=== PATIENT | female | born 1980 | race Caucasian/White ===

== ENCOUNTER 2018-11-22 12:08 | Outpatient (CLI) | payer OTHER, SELFPAY ==
[2018-11-22 13:43] LABS: TSH (W/Ref FT4) 6.84 uIU/mL (0.358-3.74)
[2018-11-22 14:00] LABS: FREE T4 1.05 ng/dL (0.76-1.46)
== END 2018-11-22 12:28 ==
PROVIDERS: PCP Nurse Practitioner Family; Visit Provider Nurse Practitioner Family
DX: E03.9 Hypothyroidism, unspecified (principal)
CPT/HCPCS: 36415; 84439; 84443

== ENCOUNTER 2018-11-22 12:10 | Outpatient (REF) | payer OTHER, SELFPAY ==
--- NOTE | 2018-11-22 11:30 | PAPFT_PTH ---
PATIENT: Suzanne Jacobo LOC: [facility] U#:[id number] AGE/SX: 37/F ROOM: RE11/22/[address]: Sofy Leavitt APRN : 1980 BED: DIS: 11/22/2018 SPEC #: [id number] RECD: 11/22/18 12:56 STATUS: BOOM REHeather #: [id number] EBER: 11/22/18 11:[address]: Sofy Leavitt DEPT: [facility] Cytology RECD BY: Zulma Garcia Tissues: 1 - CX/ENDOCX FOR PAP SMEARS Procedures: PAP THIN PREP/UVM Screening HPV DNA PROBE Comments: [id number]
== END 2018-11-22 12:30 ==
LOC: LBN 12:10
PROVIDERS: PCP Nurse Practitioner Family; Visit Provider Nurse Practitioner Family
DX: Z12.4 Encounter for screening for malignant neoplasm of cervix (principal); Z11.51 Encounter for screening for human papillomavirus (HPV)
CPT/HCPCS: 88142; 87624

== ENCOUNTER 2018-11-23 02:16 | Outpatient (CLI) | payer OTHER, SELFPAY ==
--- NOTE | 2018-11-23 08:35 | DI.US_ITS ---
SYMPTOM/DIAGNOSIS: ? ENDOMETRIOSIS VS FIBROID VS OTHER PATHOLOGY, MENORRHAGIA, N92.0,EXCESSIVE AND FREQUENT MENSTRUATION PELVIC ULTRASOUND: Pelvic ultrasound was performed transabdominally and transvaginally. Please see the worksheet for measurements of the pelvic structures. Uterus is unremarkable in appearance with an 11 mm. homogeneous endometrial stripe. There may be a tiny quantity of free fluid in the pelvis. Ovarian follicular appearance is unremarkable except for a presumed corpus luteum on the right. CONCLUSION: Negative pelvic ultrasound.
== END 2018-11-23 02:36 ==
PROVIDERS: PCP Nurse Practitioner Family; Visit Provider Nurse Practitioner Family
DX: N92.0 Excessive and frequent menstruation with regular cycle (principal); N83.11 Corpus luteum cyst of right ovary
CPT/HCPCS: 76830; 76856

== ENCOUNTER 2018-12-07 10:38 | Outpatient (CLI) | payer OTHER, SELFPAY ==
[2018-12-07 12:53] LABS: TSH (W/Ref FT4) 2.56 uIU/mL (0.358-3.74)
== END 2018-12-07 10:58 ==
PROVIDERS: PCP Nurse Practitioner Family; Visit Provider Nurse Practitioner Family
DX: E03.9 Hypothyroidism, unspecified (principal)
CPT/HCPCS: 36415; 84443

== ENCOUNTER 2019-09-10 10:53 | Outpatient (CLI) | payer OTHER, SELFPAY ==
[2019-09-10 12:29] LABS: TSH (W/Ref FT4) 3.19 uIU/mL (0.36-3.74)
== END 2019-09-10 11:13 ==
PROVIDERS: PCP Nurse Practitioner Adult Health; Visit Provider Nurse Practitioner Adult Health
DX: E03.9 Hypothyroidism, unspecified (principal)
CPT/HCPCS: 36415; 84443

== ENCOUNTER 2020-05-20 04:00 | Outpatient (CLI) | payer OTHER, SELFPAY ==
[2020-05-20 15:09] LABS: Abs Immature Grans 0.03 10^3/uL (0.0-0.06); Absolute Basophil Count 0.05 10^3/uL (0.0-0.2); Absolute Eosinophil Count 0.04 10^3/uL (0.0-0.7); Absolute Lymphocyte Count 3.55 10^3/uL (1.2-3.4); Absolute Monocyte Count 0.47 10^3/uL (0.1-0.8); Basophils % 0.6; Eosinophils % 0.5; HCT 37.1 % (36.0-46.0); Immature Grans % 0.4; Lymphocytes % 43.1; MCH 30.1 pg (27.0-33.0); MCHC 32.3 % (32.0-36.0); MPV 10.2 fL (8.0-11.0); Monocytes % 5.7; Neutrophils % 49.7; Nucleated RBC 0 %; Platelet Count 228 10^3/uL (130-400); RBC 3.99 10^6/uL (3.93-5.22); RDW-SD 44.2 fL; WBC 8.24 10^3/uL (4.4-10.8)
[2020-05-20 16:19] LABS: ESR 8 mm/hr (0-20)
[2020-05-20 19:44] LABS: TSH (W/Ref FT4) 4.69 uIU/mL (0.36-3.74)
[2020-05-20 20:06] LABS: FREE T4 0.99 ng/dL (0.76-1.46)
[2020-05-21 10:35] LABS: Syphilis Serology (RPR) Negative (Negative)
[2020-05-21 11:09] LABS: Lyme Ab w Rflx to Lyme Confirm Negative (Negative)
[2020-05-22 15:23] LABS: ANA Interpretation Positive (Negative); ANA Titer Pattern 1:80 Speckled
[2020-05-22 18:19] LABS: Anaplasma phagocytophilum Negative (Negative); B. miyamotoi PCR Negative (Negative); Babesia divergens/MO-1 Negative (Negative); Babesia duncani Negative (Negative); Babesia microti Negative (Negative); Ehrlichia chaffeensis Negative (Negative); Ehrlichia ewingii/canis Negative (Negative); Ehrlichia muris eauclairensis Negative (Negative)
== END 2020-05-20 04:20 ==
PROVIDERS: PCP Nurse Practitioner Adult Health; Visit Provider Family Medicine
DX: M54.12 Radiculopathy, cervical region (principal)
CPT/HCPCS: 36415; 85652; 87798; 84439; 84443; 85025; 86038; 86140; 86592; 86618

== ENCOUNTER 2021-04-15 10:43 | Outpatient (REF) | payer OTHER, SELFPAY ==
--- NOTE | 2021-04-15 10:15 | SKI_PTH ---
PATIENT: Suzanne Jacobo LOC: [facility] U#:[id number] AGE/SX: 40/F ROOM: RE04/15/[address]: GAMA [place] : 1980 BED: DIS: 04/15/2021 SPEC #: [id number] RECD: 04/15/21 12:26 STATUS: BOOM [place] #: [id number] EBER: 04/15/21 10:[address]: Amber Sewell DEPT: Surgical Specimen RECD BY: Zulma Garcia ENTERED: 04/15/21 12:28 SP TYPE: FERNANDO SALES DR: Odette Santiago APRN Tissues: 1 - SKIN BIOPSY(SHAVE/PUNCH) 2 - SKIN BIOPSY(SHAVE/PUNCH) Procedures: SKIN LEVEL 4 Comments: [id number]
== END 2021-04-15 10:44 | disposition home or self-care (01) ==
LOC: LBN 10:43
PROVIDERS: PCP Nurse Practitioner Adult Health; Visit Provider Physical Therapy Assistant
DX: D04.8 Carcinoma in situ of skin of other sites (principal)
CPT/HCPCS: 88305

== ENCOUNTER 2021-05-03 10:32 | Outpatient (REF) | payer OTHER, SELFPAY ==
--- NOTE | 2021-05-03 09:00 | SKI_PTH ---
PATIENT: Suzanne Jacobo LOC: [facility] U#:[id number] AGE/SX: 40/F ROOM: RE05/03/[address]: GAMA [place] : 1980 BED: DIS: 05/03/2021 SPEC #: [id number] RECD: 05/03/21 12:59 STATUS: BOOM REHeather #: [id number] EBER: 05/03/21 09:[address]: Amber Sewell DEPT: Surgical Specimen RECD BY: Zulma Garcia ENTERED: 05/03/21 13:00 SP TYPE: FERNANDO SALES DR: Odette Santiago APRN Tissues: 1 - SKIN BIOPSY(SHAVE/PUNCH) 2 - SKIN BIOPSY(SHAVE/PUNCH) Procedures: GROSS AND MICRO LEVEL 4 Comments: [id number]
== END 2021-05-03 10:33 | disposition home or self-care (01) ==
LOC: LBN 10:32
PROVIDERS: PCP Nurse Practitioner Adult Health; Visit Provider Physical Therapy Assistant
DX: D07.1 Carcinoma in situ of vulva (principal); N90.89 Other specified noninflammatory disorders of vulva and perineum
CPT/HCPCS: 88305

== ENCOUNTER 2021-06-28 11:53 | Outpatient (REF) | payer OTHER, SELFPAY ==
--- NOTE | 2021-06-28 11:00 | PAPFT_PTH ---
PATIENT: Suzanne Jacobo LOC: [facility] U#:[id number] AGE/SX: 40/F ROOM: RE06/28/[address]: Katie Goodman DO : 1980 BED: DIS: 06/28/2021 SPEC #: [id number] RECD: 06/28/21 18:53 STATUS: BOOM REQ #: [id number] EBER: 06/28/21 11:[address]: Katie Goodman DEPT: [facility] Cytology RECD BY: Zulma Garcia ENTERED: 06/28/21 18:53 SP TYPE: PAPFT OT DR: Odette Santiago APRN Tissues: 1 - CX/ENDOCX FOR PAP SMEARS Procedures: PAP THIN PREP/UVM Screening HPV DNA PROBE Comments: [id number]
== END 2021-06-28 11:54 | disposition home or self-care (01) ==
LOC: LBN 11:53
PROVIDERS: PCP Nurse Practitioner Adult Health; Visit Provider Obstetrics & Gynecology
DX: Z12.4 Encounter for screening for malignant neoplasm of cervix (principal); Z85.44 Personal history of malignant neoplasm of other female genital organs; Z11.51 Encounter for screening for human papillomavirus (HPV)
CPT/HCPCS: 88142; 87624

== ENCOUNTER 2022-01-04 02:30 | Outpatient (CLI) | payer OTHER, SELFPAY ==
[2022-01-04 12:04] LABS: Source Nasal/Nares
[2022-01-04 14:10] LABS: COVID-19 PCR Negative (Negative)
== END 2022-01-04 02:31 | disposition home or self-care (01) ==
PROVIDERS: PCP Nurse Practitioner Adult Health; Visit Provider Student in an Organized Health Care Education/Training Program
DX: Z20.822 Contact with and (suspected) exposure to COVID-19 (principal); Z01.818 Encounter for other preprocedural examination
CPT/HCPCS: 87635

== ENCOUNTER 2022-01-06 09:49 | Day surgery (SDC) | payer OTHER, SELFPAY ==
--- NOTE | 2022-01-06 08:39 | W.ANESPRE ---
General Info Date of Service Date Performed: 01/06/22 Height: 5 ft 8.5 in Weight: 58.967 kg Body Mass Index (BMI): 19.5 Surgical Procedure: Operation Date: 01/06/22 10:55 Proposed Procedure Side Surgeon p Shoulder Manipulation Left John Monterroso MD Meds Allergies and Home Medications Allergies Allergy/AdvReac Type Severity Reaction Status Date / Time No Known Allergies Allergy Verified 01/06/22 10:04 Home Medication Medication Instructions Recorded multivitamin (Multi-Day) 1 ea PO DAILY 03/16/17 valacyclovir 1 gram tablet 2,000 mg PO BID PRN #4 tab-cap 08/16/21 ibuprofen 800 mg tablet 800 mg PO TID PRN 01/06/22 naproxen 250 mg tablet 250 - 500 mg PO BID PRN #40 tab 01/06/22 oxycodone 5 mg tablet 5 - 10 mg PO Q4H PRN #9 tab MDD 30 01/06/22 mg Current Visit Medications: Current Medications Generic Name Dose Route Start Last Admin Trade Name Freq PRN Reason Stop Dose Admin Ringer's Solution 1,000 mls @ 30 mls/hr 01/06/22 06:00 IV 02/04/22 23:59 INFUSION MAYNOR IV Miscellaneous Supplies 1 each 01/06/22 06:00 Iv Access IV 02/04/22 23:59 DIRECTED MAYNOR Naproxen 250 - 500 mg 01/06/22 07:11 Naproxen 500 Mg Tab PO BID PRN PRN Oxycodone HCl 5 - 10 mg 01/06/22 07:11 Oxycodone 5 Mg Tab PO Q4H PRN PRN Sodium Chloride 0 ml 01/06/22 06:00 Normal Saline Flush 10 Ml Syr IV 02/04/22 23:59 PRN PRN Sodium Chloride 0 ml 01/06/22 06:00 Normal Saline 10 Ml Vial IJ 02/04/22 23:59 DIRECTED PRN Sterile Water 0 ml 01/06/22 06:00 Water,Injection,Sterile 10 Ml Vial IJ 02/04/22 23:59 DIRECTED PRN PFSH Active Problems Active Problems: Problem Status Onset Code Scapular dyskinesis ~08/2021 G25.89 Ulnar 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 Neoplasm of uncertain behavior of skin 09/27/21 D48.5 Cervical radiculopathy M54.12 Strain of left rotator cuff capsule S46.012A SLAP lesion of left shoulder ~06/2021 S43.432A Adhesive capsulitis of left shoulder ~06/2021 M75.02 Primary squamous cell carcinoma of skin C44.92 YANG positive R76.8 Nabothian (gland) cyst or follicle N88.8 Subclinical hypothyroidism ~11/23/18 E03.9 Menorrhagia with regular cycle N92.0 HSV (herpes simplex virus) infection B00.9 Diffuse cystic mastopathy 02/08/12 N60.19 Medical History Medical History Cervical radiculitis Iron deficiency anemia Irritable bowel syndrome with diarrhea (03/16/17) Surgical History Surgical History Biopsy of breast (12/19/08) left br bx 01/24/13 Breast, Cyst Aspiration (12/19/08) Tobacco Smoking/Tobacco Use Status: Never Alcohol Alcohol Intake: current Alcohol intake frequency: a few times a week Alcohol type: wine Substance Use Substance use: Never Substance use type: does not use Vital Signs and Lab Results Lab Results Blood Type / Crossmatch: No Data to Display Complete Blood Count: No Data to Display Complete Metabolic Panel: No Data to Display Liver Function Panel: No Data to Display Coagulation Panel: No Data to Display Cardiac Panel: No Data to Display Arterial Blood Gas: No Data to Display Venous Blood Gas: No Data to Display Pancreas Panel: No Data to Display Thyroid Panel: No Data to Display Infectious Disease: Coronavirus (COVID-19)(PCR) Negative (Negative) 01/04/22 08:33 01/04/22 Coronavirus 2019 Source Nasal/Nares 01/04/22 08:33 01/04/22 Blood Cultures: No Data to Display Toxicology Panel: No Data to Display Panel: No Data to Display Anesthesia Assessment and Plan Anesthesia History Personal History: No History of Anesthesia Complications Family History: No Family History of Anesthesia Complications Exercise Tolerance Exercise Tolerance: Metabolic Equivalents>4 Cardiac & Pulmonary Exam Cardiac Exam: Normal S1/S2 Heart Sounds Pulmonary Exam: Clear Bilateral Breath Sounds Implantable Cardiac Device Does patient have a Pacemaker or an ICD?: No Airway Exam Known Difficult Airway: No Mallampati Class: 2 Mouth Opening: Normal (> 3cm) Thyromental Distance: Greater than 3 cm Neck Range of Motion: Full ROM Neck Circumference: Normal Teeth Condition: Normal Dentition ASA Classification ASA Score: ASA 2 Emergency Case?: No NPO Status NPO Status: NPO Clears >2 hours, Solids >8 hours Status Status: Negative HCG Anesthesia Plan Resuscitation Status: Full Code Anesthesia Technique: General Anesthesia Airway Planned: Natural Airway Pain Management: Surgeon and patient request nerve block Monitors Used: Standard Monitors Preoperative Comments:: 41 yo female for shoulder manipulation. Sig PMHx: cervical radiculopathy, occ EtOH, never smoker.
[2022-01-06 09:54] VITALS: BP 104/68; PULSE 72; RESP 16; TEMP 36.7; O2SAT 100
[2022-01-06 10:22] VITALS: BMI 19.5
[2022-01-06] MEDS: Lactated Ringers 1,000 ML 30 ML IV (10:29)
[2022-01-06 11:02] VITALS: BP 120/87; PULSE 82; RESP 16; TEMP 36.5; O2SAT 99
[2022-01-06 11:31] VITALS: BP 111/78; PULSE 83; RESP 16; TEMP 36.6; O2SAT 98
--- NOTE | 2022-01-06 11:34 | W.PM.DSUDISC ---
Discharge Plan Disposition Patient Disposition: HOME Condition: Stable Discharge Details Reason For Visit: Left shoulder stiffness Attending Provider: John Monterroso Primary Care Provider: Odette Santiago Home Meds and New Rx's Prescriptions: New naproxen 250 mg tablet 250 - 500 mg PO BID PRNQty: 40 0RF Rx Instructions: take with a meal oxycodone 5 mg tablet 5 - 10 mg PO Q4H MDD 30 mg PRN (Reason: moderate to severe pain) Qty: 9 0RF Continued valacyclovir 1 gram tablet 2,000 mg PO BID PRN (Reason: recurrent orolabial HSV) Qty: 4 6RF Rx Instructions: Take 2 g BID for 1 day for recurrent orolabial herpes multivitamin [Multi-Day] 1 EACH tablet 1 ea PO DAILY 0RF Discontinued ibuprofen 800 mg tablet 400 - 800 mg PO TID PRN (Reason: pain) Qty: 60 0RF Rx Instructions: Left arm pain. Take with food. No Action ibuprofen 800 mg tablet 800 mg PO TID PRN0RF Label Comments: TAKE ONE-HALF TO ONE TABLET BY MOUTH THREE TIMES A DAY NEEDED FOR LEFT ARM PAIN. TAKE WITH FOOD. Discharge Instructions Additional Instructions: Surgery: Left shoulder manipulation under anesthesia Activity: Weightbearing as tolerated left upper extremity. Gentle daily stretching exercises in all directions. Resume physical therapy tomorrow morning. Prescriptions: Naproxen 250 mg take 1-2 every 12 hours with a meal as needed for moderate pain Oxycodone 5 mg take 1-2 every 4-6 hours as needed for severe pain You may use [id number] Tylenol (acetaminophen) as needed for mild pain. These pain medications may be taken all at once or in different combinations as needed. Also, recommend Colace (docusate) as a stool softener as surgery and pain medicine cause constipation. Dressings: None Follow-up: 10-[address] Monterroso Let us know right away if you develop any redness, drainage, fevers, chest pain, or trouble breathing. Do not drink alcohol or drive for at least 24 hours after anesthesia. Please call the office during business hours with any questions or concerns. Referrals: John Monterroso MD [ [facility] STAFF PHYSICIAN] - Discharge Orders Discharge Orders: Discharge Order (Routine); Ordered 01/06/22 Ordered By: John Monterroso DS: Diagnosis Discharge Diagnosis (1) Adhesive capsulitis of left shoulder: Status: Acute
--- NOTE | 2022-01-06 11:37 | W.ANESPOSTOP ---
Postoperative Evaluation Date, Time and Location Date Performed: 01/06/22 Time Performed: 11:37 Patient Location: Day Surgery Unit Vital Signs Most Recent Imported Vital Signs: Most Recent Vital Signs Temp Pulse Resp BP Pulse Ox 36.6 C 83 16 120/87 98 01/06/22 11:31 01/06/22 11:31 01/06/22 11:31 01/06/22 11:02 01/06/22 11:31 Pain Score Most Recent Pain Score: Most Recent Pain Score Pain Level 0 01/06/22 11:31 Assessment Mental Status: Arousable with meaningful communication Airway and Respiratory Function: Patent airway with normal (patient baseline) respiratory exam Cardiovascular Function: Hemodynamically Stable Hydration Status: Adequately Hydrated Nausea & Vomiting: No Nausea or Vomiting Pain: Pt. Denies Any Pain Peripheral Nerve Block: Regional nerve block not resolved at time of post operative discharge
--- NOTE | 2022-01-06 11:38 | ROE_ITS ---
Date of service: 01/06/22 Time of Service: 11:35 Operative Note Operative Note DATE OF PROCEDURE: 01/06/22 PRE-OP DIAGNOSIS: Left shoulder adhesive capsulitis POST-OP DIAGNOSIS: same PROCEDURE: Left shoulder manipulation under anesthesia, CPT #54639 SURGEON: John Monterroso VP OF CUSTOMER EXPERIENCE STRATEGY: None None ANESTHESIA TYPE: General:No Airway and Primary Nerve Block Refer to Anesthesia Record COMPLICATIONS: None Patient was transported to: PACU Patient's condition: stable Indications: Please see complete medical record for details. Procedure Description: In the operating room, general anesthesia was induced. The patient was positioned supine on the stretcher. Preoperative antibiotics were omitted. The correct patient, procedure, and side of the procedure were all verified prior to beginning. Left shoulder was examined under anesthesia with severely limited range of motion most notably about 0 to 5 degrees of external rotation at the side and forward elevation restriction around 115 120 degrees. Using a short lever arm humerus as the fulcrum the arm was taken into forward elevation while stabilizing the scapula with significant releasing of adhesions completing forward elevation to full symmetric motion compared to the other side 160 degrees. Edwin was brought down to the patient side and gently and similarly bro ught steadily into external rotation with more significant releases of adhesions into full external rotation at the side 75 degrees symmetrical. Next the shoulder was gently guided through full range of motion numerous times forward elevation, external rotation at the side, and abduction with additional minor releases. In about 90 degrees abduction full internal and external rotation were also performed numerous times. There was excellent range of motion, no shoulder instability, and no restriction to any range of motion direction postmanipulation. The patient awoke from anesthesia without complication and was transferred to the recovery room in a stable condition.
[2022-01-06 12:02] VITALS: BP 114/77; PULSE 68; RESP 16; TEMP 37; O2SAT 100
--- NOTE | 2022-01-06 12:18 | W.ANESNERVE ---
Nerve Block Single Injection Procedure Date and Time Date Performed: 01/06/22 Procedure Start: 11:00 Location Where Procedure Performed Procedure Location: Day Surgery Unit Reason Performed: Postoperative Analgesia Requesting Provider: John Monterroso Timeout Performed Timeout Performed: Yes Monitoring Used ECG, Blood Pressure and SpO2 Sterility Sterility: Hand Hygiene, Surgical Cap, Surgical Mask, Sterile Gloves and Chlorhexidine Sedation Given During Procedure Sedation Given (Indicate Dose Given): Versed IV Dose:: 2 mg Patient Mental Status Patient Mental Status: Awake Nerve Block 1st Nerve Block: Laterality: Left Block Type: Interscalene Needle / Catheter Used: 80mm SonoPlex II Local Anesthetic Bolus (Indicate Dose Given): Lidocaine used for local infiltration of skin, Injected in 3-5ml increments after negative blood aspiration, Bupivacaine 0.5% Dose:: 10 mL and Exparel Dose:: 10 mL Additives (Indicate Dose Given): None Ultrasound: Sterile probe cover and gel used Ultrasound Image Saved?: Yes Nerve Stimulator: Not Used Paresthesia: None Procedure Tolerated: No Complications Procedure Outcome: Successful Performed By: Rolando Montalvo
== END 2022-01-06 12:33 | disposition home or self-care (01) ==
LOC: SUR 09:49
PROVIDERS: PCP Nurse Practitioner Adult Health; Visit Provider Student in an Organized Health Care Education/Training Program
PROC: (CPT 23700; principal; 2022-01-06 10:45)
DX: M75.02 Adhesive capsulitis of left shoulder (principal); D50.9 Iron deficiency anemia, unspecified; K58.0 Irritable bowel syndrome with diarrhea
CPT/HCPCS: 23700; 76942; J1885; J2001; J2250

== ENCOUNTER 2022-02-07 03:13 | Outpatient (CLI) | payer OTHER, SELFPAY ==
--- NOTE | 2022-02-07 07:15 | DI.MRI_ITS ---
Exam(s) MR UPPER JOINT LT WO EXAM: MR UPPER JOINT LT WO CLINICAL HISTORY: Elbow mechanical painful symptoms,ULNAR NERVE ABNORMALITY,G56.20. TECHNIQUE: Multiplanar multisequence MRI was performed. COMPARISON: Priors available for comparison. FINDINGS: BONES: There is no fracture or contusion pattern. JOINTS: The articular cartilage is unremarkable. No joint effusion is present. TENDONS: Common flexors: Unremarkable. Common extensors: Unremarkable. Biceps: Unremarkable. Triceps: Unremarkable. MUSCLES: Unremarkable. MEDIAN NERVE: Unremarkable on this noncontrast examination. ULNAR NERVE: Unremarkable on this noncontrast examination. SOFT TISSUES: Unremarkable. LIGAMENTS: Ulnar collateral: Unremarkable. Radial collateral: Unremarkable. OTHER: IMPRESSION: 1. Unremarkable appearance of the left elbow. 2. Unremarkable appearance of the ulnar nerve. No soft tissue mass or focal fluid collection is seen . DATA REPOSITORY:
== END 2022-02-07 03:33 ==
PROVIDERS: PCP Nurse Practitioner Adult Health; Visit Provider Student in an Organized Health Care Education/Training Program
DX: M25.522 Pain in left elbow; G56.22 Lesion of ulnar nerve, left upper limb
CPT/HCPCS: 73221

== ENCOUNTER 2022-06-29 01:36 | Outpatient (CLI) | payer OTHER, SELFPAY ==
[2022-06-29 12:17] LABS: Source Nasal/Nares
[2022-06-29 16:53] LABS: COVID-19 PCR Negative (Negative)
== END 2022-06-29 01:37 | disposition home or self-care (01) ==
LOC: LBO 01:36
PROVIDERS: PCP Nurse Practitioner Adult Health; Visit Provider Student in an Organized Health Care Education/Training Program
DX: Z20.822 Contact with and (suspected) exposure to COVID-19 (principal)
CPT/HCPCS: 87635

== ENCOUNTER 2022-07-01 06:15 | Day surgery (SDC) | payer OTHER, SELFPAY ==
[2022-07-01] VITALS (9 sets, daily range): BP systolic 95–129; BP diastolic 55–97; PULSE 53–77; RESP 14–18; TEMP 36.4–36.7; O2SAT 98–100; BMI 19.5
--- NOTE | 2022-07-01 06:55 | W.ANESPRE ---
General Info Date of Service Date Performed: 07/01/22 Height: 5 ft 8 in Weight: 58.2 kg Body Mass Index (BMI): 19.5 Surgical Procedure: Operation Date: 07/01/22 07:50 Proposed Procedure Side Surgeon p Elbow Arthroscopy w/Extensive Debridement Left John Monterroso MD s Shoulder Manipulation Left John Monterroso MD Meds Allergies and Home Medications Allergies Allergy/AdvReac Type Severity Reaction Status Date / Time No Known Allergies Allergy Verified 07/01/22 06:43 Home Medication Medication Instructions Recorded multivitamin (Multi-Day tablet) 1 ea PO DAILY 03/16/17 valacyclovir 1 gram tablet 2,000 mg PO BID PRN recurrent 08/16/21 orolabial HSV #4 tab-caps aspirin 81 mg tablet,delayed 81 mg PO DAILY Prevent blood clot 07/01/22 release 14 days #14 tabs naproxen 250 mg tablet 250 - 500 mg PO BID PRN #40 tabs 07/01/22 oxycodone 5 mg tablet 5 - 10 mg PO Q4H PRN moderate to 07/01/22 severe pain #18 tabs Current Visit Medications: Current Medications Generic Name Dose Route Start Last Admin Trade Name Freq PRN Reason Stop Dose Admin Ringer's Solution 1,000 mls @ 30 mls/hr 07/01/22 06:00 IV 07/30/22 23:59 INFUSION MAYNOR Cefazolin Sodium/Dextrose 2 gm in 50 mls @ 100 mls/hr 07/01/22 06:00 Ancef Duplex IVPB 07/30/22 23:59 PREOP MAYNOR IV Miscellaneous Supplies 1 each 07/01/22 06:00 Iv Access IV 07/30/22 23:59 DIRECTED MAYNOR Sodium Chloride 0 ml 07/01/22 06:00 Normal Saline Flush 10 Ml Syr IV 07/30/22 23:59 PRN PRN Sodium Chloride 0 ml 07/01/22 06:00 Normal Saline 10 Ml Vial IJ 07/30/22 23:59 DIRECTED PRN Sterile Water 0 ml 07/01/22 06:00 Water,Injection,Sterile 10 Ml Vial IJ 07/30/22 23:59 DIRECTED PRN PFSH Active Problems Active Problems: Problem Status Onset Code Arm paresthesia, left R20.2 Injury of left brachial plexus S14.3XXA Instability of left elbow joint M25.322 Scapular dyskinesis ~08/2021 G25.89 Ulnar 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 Neoplasm of uncertain behavior of skin 09/27/21 D48.5 Cervical radiculopathy M54.12 Strain of left rotator cuff capsule S46.012A SLAP lesion of left shoulder ~06/2021 S43.432A Adhesive capsulitis of left shoulder ~06/2021 M75.02 Primary squamous cell carcinoma of skin C44.92 YANG positive R76.8 Nabothian (gland) cyst or follicle N88.8 Subclinical hypothyroidism ~11/23/18 E03.9 Menorrhagia with regular cycle N92.0 HSV (herpes simplex virus) infection B00.9 Diffuse cystic mastopathy 02/08/12 N60.19 Medical History Medical History Cervical radiculitis Iron deficiency anemia Irritable bowel syndrome with diarrhea (03/16/17) Surgical History Surgical History Biopsy of breast (12/19/08) left br bx 01/24/13 Breast, Cyst Aspiration (12/19/08) Tobacco Smoking/Tobacco Use Status: Never Alcohol Alcohol Intake: current Alcohol intake frequency: a few times a week Alcohol type: wine Substance Use Substance use: Never Substance use type: does not use Vital Signs and Lab Results Vital Signs Most Recent Vital Signs in EMR: Most Recent Vital Signs Temp Pulse Resp BP Pulse Ox 36.7 C 77 16 119/85 100 07/01/22 06:44 07/01/22 06:44 07/01/22 06:44 07/01/22 06:44 07/01/22 06:44 Point of Care Results Point of Care Results: POC- Test(urine) Negative 07/01/22 06:54 Lab Results Blood Type / Crossmatch: No Data to Display Complete Blood Count: No Data to Display Complete Metabolic Panel: No Data to Display Liver Function Panel: No Data to Display Coagulation Panel: No Data to Display Cardiac Panel: No Data to Display Arterial Blood Gas: No Data to Display Venous Blood Gas: No Data to Display Pancreas Panel: No Data to Display Thyroid Panel: No Data to Display Infectious Disease: Coronavirus (COVID-19)(PCR) Negative (Negative) 06/29/22 08:31 Coronavirus 2019 Source Nasal/Nares 06/29/22 08:31 Blood Cultures: No Data to Display Toxicology Panel: No Data to Display Panel: No Data to Display Anesthesia Assessment and Plan Anesthesia History Personal History: No History of Anesthesia Complications Family History: No Family History of Anesthesia Complications Exercise Tolerance Exercise Tolerance: Metabolic Equivalents>4 Pertinent Negatives Pertinent Negatives: No Symptoms of GERD, No Major Cardiovascular Symptoms or Complaints, No Major Pulmonary Symptoms or Complaints and No History of CVA/TIA Cardiac & Pulmonary Exam Cardiac Exam: Normal S1/S2 Heart Sounds Pulmonary Exam: Clear Bilateral Breath Sounds Implantable Cardiac Device Does patient have a Pacemaker or an ICD?: No Airway Exam Known Difficult Airway: No Mallampati Class: 2 Mouth Opening: Normal (> 3cm) Thyromental Distance: Greater than 3 cm Neck Range of Motion: Full ROM Neck Circumference: Normal Teeth Condition: Normal Dentition ASA Classification ASA Score: ASA 2 Emergency Case?: No NPO Status NPO Status: NPO Clears >2 hours, Solids >8 hours Status Status: Negative HCG Anesthesia Plan Resuscitation Status: Full Code Anesthesia Technique: General Anesthesia Airway Planned: LMA Pain Management: Surgeon and patient request nerve block Monitors Used: Standard Monitors
--- NOTE | 2022-07-01 07:01 | W.PM.OP ---
Operative Note Operative Note DATE OF PROCEDURE: 07/01/22 PRE-OP DIAGNOSIS: Left elbow radiocapitellar plica Left shoulder adhesive capsulitis POST-OP DIAGNOSIS: other Left elbow snapping annular ligament Left shoulder adhesive capsulitis PROCEDURE: 1. Left elbow arthroscopy with limited debridement, CPT #20219: Snapping annular ligament 2. Left shoulder manipulation under anesthesia, CPT #00810 SURGEON: John Monterroso MATERIAL SCHEDULER: None None ANESTHESIA TYPE: Local By Surgeon, General LMA/ETT and Primary Nerve Block Refer to Anesthesia Record ESTIMATED BLOOD LOSS: 5 TOURNIQUET TIME: 0 COMPLICATIONS: None Patient was transported to: PACU Patient's condition: stable Indications: Please see complete medical record for details. Findings: Moderate anterior and lateral synovitis. Intact cartilaginous surfaces. Thickened annular ligament with redundant tissue rolling over radial head with flexion and supination causing reproducible mechanical snapping. Procedure Description: In the operating room, general anesthesia was induced. The patient was maintained supine for shoulder the procedure. The left shoulder was examined under anesthesia with excellent, full symmetric external rotation and internal rotation. Straight abduction was mildly limited. Using a short lever arm, abduction was gently and gradually forced with mild releases into full symmetric motion compared to the other side. Full motion was repeated in all directions especially abduction and abduction internal and external rotation. There was no instability or mechanical symptoms. There is no longer any restricted range of motion especially abduction. The patient was positioned lateral on the operating room table. All bony prominences were well-padded. Preoperative antibiotics were administered. The elbow was prepped and draped in the usual sterile fashion. The correct patient, procedure, and side of the procedure were all verified prior to incision. 20 cc of normal saline was used to insufflate the left elbow joint through the lateral soft spot. The simba and spread technique was used to establish the proximal anteromedial portal. A diagnostic arthroscopy of the anterior elbow compartment was performed with findings noted above. The snapping annular ligament was quite obvious visually and mechanically. A 18-gauge needle needle was used to localize a modified direct lateral working portal followed by simba and spread and 3.5 mm shaver insertion. The mechanical shaver was used to debride anterior and lateral synovitis. It was used to start debridement on the annular ligament. A [place] blade was used to transect the snapping annular ligament tissue followed by meniscus biter to resect the redundant tissue. The shaver was then used to smooth tissue margins. Switching sticks were used to switch working and viewing portals. There were no significant abnormalities in the ulnohumeral joint medially. The elbow was drained of arthroscopic fluid. The medial and lateral portals were closed using 3-0 Monocryl in a buried interrupted fashion. Mastisol was applied about the incisions which were covered with Steri-Strips. Xeroform pieces were applied over both incisions and covered with dry 4 x 4 gauze. The radial pulse was 2+. The elbow was gently compressed with maribeth bandage. The patient awoke from anesthesia without complication and was transferred to the recovery room in stable fashion.
[2022-07-01] MEDS: Lactated Ringers 1,000 ML 30 ML IV (07:20)
[2022-07-01] MEDS: ceFAZolin 2 GM/50 ML BAG IVPB (07:42)
--- NOTE | 2022-07-01 08:08 | W.ANESNERVE ---
Nerve Block Single Injection Procedure Date and Time Date Performed: 07/01/22 Procedure Start: 07:25 Location Where Procedure Performed Procedure Location: Day Surgery Unit Reason Performed: Postoperative Analgesia Requesting Provider: John Monterroso Timeout Performed Timeout Performed: Yes Monitoring Used ECG, Blood Pressure, SpO2 and See EMR for corresponding vital signs Sterility Sterility: Hand Hygiene, Surgical Cap, Surgical Mask, Sterile Gloves, Sterile Drape/Sheet and Chlorhexidine Sedation Given During Procedure Sedation Given (Indicate Dose Given): Versed IV Dose:: 2 mg Patient Mental Status Patient Mental Status: Awake Nerve Block 1st Nerve Block: Laterality: Left Block Type: Interscalene Needle / Catheter Used: 80mm SonoPlex II Local Anesthetic Bolus (Indicate Dose Given): Lidocaine used for local infiltration of skin, Injected in 3-5ml increments after negative blood aspiration and Bupivacaine 0.5% Dose:: 12 ml Additives (Indicate Dose Given): Precedex Dose:: 40 mcg Ultrasound: Sterile probe cover and gel used Ultrasound Image Saved?: Yes Nerve Stimulator: Not Used Paresthesia: Left Paresthesia Duration: Transient Procedure Tolerated: No Complications Procedure Outcome: Successful Performed By: Kiera Houser
[2022-07-01] MEDS: Bupivacaine 0.25% Pres-Free W/EPI 30 ML VIAL (08:50)
[2022-07-01] MEDS: EPINEPHrine 30 MG/30 ML VIAL (08:50)
--- NOTE | 2022-07-01 11:21 | W.PM.DSUDISC ---
Discharge Plan Disposition Patient Disposition: HOME Condition: Good Discharge Details Reason For Visit: Left elbow surgery Attending Provider: John Monterroso Primary Care Provider: Odette Santiago Home Meds and New Rx's Prescriptions: New naproxen 250 mg tablet 250 - 500 mg PO BID PRNQty: 40 0RF Rx Instructions: take with a meal aspirin 81 mg tablet,delayed release (DR/EC) 81 mg PO DAILY 14 Days Qty: 14 0RF oxycodone 5 mg tablet 5 - 10 mg PO Q4H MDD 30 mg PRN (Reason: moderate to severe pain) Qty: 18 0RF Continued valacyclovir 1 gram tablet 2,000 mg PO BID PRN (Reason: recurrent orolabial HSV) Qty: 4 6RF Rx Instructions: Take 2 g BID for 1 day for recurrent orolabial herpes multivitamin [Multi-Day] 1 EACH tablet 1 ea PO DAILY Discontinued ibuprofen 800 mg tablet 800 mg PO TID PRN Label Comments: TAKE ONE-HALF TO ONE TABLET BY MOUTH THREE TIMES A DAY NEEDED FOR LEFT ARM PAIN. TAKE WITH FOOD. Discharge Instructions Additional Instructions: Surgery: Left elbow arthroscopy with debridement snapping annular ligament and Left shoulder manipulation under anesthsia Activity: Weightbearing as tolerated. Advance shoulder and elbow range of motion as comfort allows. Important to restore full elbow extension and full shoulder abduction as soon as possible. Recommend avoiding repetitive activities and heavy lifting for 6-8 weeks. A physical therapy prescription will be provided in the office if needed. Prescriptions: Aspirin 81 mg take 1 daily to prevent a blood clot for 14 days Naproxen 250 mg take 1-2 every 12 hours with a meal as needed for moderate pain Oxycodone 5 mg take 1-2 every 4-6 hours as needed for severe pain You may use [id number] Tylenol (acetaminophen) as needed for mild pain. These pain medications may be taken all at once or in different combinations as needed. Also, recommend Colace (docusate) as a stool softener as surgery and pain medicine cause constipation. You may try [id number] diphenhydramine (Benadryl) 25-50 mg nightly as a sleep aid Dressings: Leave dressing in place for 3 days. May then remove and leave open to air or cover incisions with Band-Aids. May shower after 5 days. Follow-up: 10-[address] Monterroso Let us know right away if you develop any redness, drainage, fevers, chest pain, or trouble breathing. Do not drink alcohol or drive for at least 24 hours after anesthesia. Please call the office during business hours with any questions or concerns. Referrals: John Monterroso MD [ [facility] STAFF PHYSICIAN] - 07/13/22 11:30 am Discharge Orders Discharge Orders: Discharge Order (Routine); Ordered 07/01/22 Ordered By: John Monterroso DS: Diagnosis Discharge Diagnosis (1) Instability of left elbow joint: Status: Acute (2) Adhesive capsulitis of left shoulder: Status: Acute
--- NOTE | 2022-07-01 15:13 | W.ANESPOSTOP ---
Postoperative Evaluation Date, Time and Location Date Performed: 07/01/22 Time Performed: 10:25 Patient Location: Day Surgery Unit Vital Signs Most Recent Imported Vital Signs: Most Recent Vital Signs Temp Pulse Resp BP Pulse Ox 36.6 C 53 L 15 109/73 100 07/01/22 10:20 07/01/22 10:20 07/01/22 10:20 07/01/22 10:20 07/01/22 10:20 Pain Score Most Recent Pain Score: Most Recent Pain Score Pain Level 0 07/01/22 10:20 Assessment Mental Status: Awake (Alert & Oriented to Patient Baseline) Airway and Respiratory Function: Patent airway with normal (patient baseline) respiratory exam Cardiovascular Function: Hemodynamically Stable Hydration Status: Adequately Hydrated Nausea & Vomiting: No Nausea or Vomiting Pain: Pt. Denies Any Pain Peripheral Nerve Block: Regional nerve block not resolved at time of post operative discharge
== END 2022-07-01 11:40 | disposition home or self-care (01) ==
PROVIDERS: PCP Nurse Practitioner Adult Health; Visit Provider Student in an Organized Health Care Education/Training Program
PROC: (CPT 29830; principal; 2022-07-01 07:30)
DX: M25.322 Other instability, left elbow (principal); M75.02 Adhesive capsulitis of left shoulder
CPT/HCPCS: 29837; 23700; 76942; 81025; J0690; J1100; J1885; J2250; J2405

== ENCOUNTER 2022-10-26 03:08 | Outpatient (CLI) | payer OTHER, SELFPAY ==
[2022-10-26 10:18] LABS: Anion Gap 9.8 mmol/L (3-11); BUN 14 mg/dL (7-18); CO2 25.2 mmol/L (21.0-32.0); CREATININE 0.8 mg/dL (0.55-1.02); Calcium 9.5 mg/dL (8.5-10.1); Calculated LDL 91 mg/dL (<100); Chloride 102 mmol/L (98-107); Cholesterol 164 mg/dL (<200); Estimated GFR 96.06 (mL/min/1.73m2); Glucose 116 mg/dL (74-106); HDL Cholesterol 64 mg/dL (40-60); Potassium 4.7 mmol/L (3.5-5.1); Sodium 137 mmol/L (136-145); TSH (W/Ref FT4) 2.87 uIU/mL (0.36-3.74); Triglyceride 47 mg/dL (<150)
== END 2022-10-26 03:09 | disposition home or self-care (01) ==
PROVIDERS: PCP Nurse Practitioner Adult Health; Visit Provider Nurse Practitioner Adult Health
DX: Z13.1 Encounter for screening for diabetes mellitus (principal); Z13.220 Encounter for screening for lipoid disorders; E03.9 Hypothyroidism, unspecified; R76.8 Other specified abnormal immunological findings in serum
CPT/HCPCS: 36415; 80048; 80061; 84443

== ENCOUNTER 2024-11-11 11:32 | Outpatient (REF) | payer OTHER, SELFPAY ==
--- NOTE | 2024-11-11 11:30 | PAPFT_PTH ---
PATIENT: Suzanne Jacobo LOC: [facility] U#:[id number] AGE/SX: 43/F ROOM: RE11/11/[address]: Katie Goodman DO : 1980 BED: DIS: 11/11/2024 SPEC #: [id number] RECD: 11/11/24 12:57 STATUS: BOOM REQ #: [id number] EBER: 11/11/24 11:[address]: Katie Goodman DEPT: [facility] Cytology RECD BY: Zulma Garcia ENTERED: 11/11/24 12:58 SP TYPE: PAPFT OTHR DR: Odette Santiago APRN Tissues: 1 - CX/ENDOCX FOR PAP SMEARS Procedures: PAP THIN PREP/[facility] Screening HPV DNA PROBE Comments: [id number] (HPV 16 & 18/45)
== END 2024-11-11 11:33 | disposition home or self-care (01) ==
LOC: LBN 11:32
PROVIDERS: PCP Nurse Practitioner Adult Health; Visit Provider Obstetrics & Gynecology
DX: Z11.51 Encounter for screening for human papillomavirus (HPV) (principal); Z01.419 Encounter for gynecological examination (general) (routine) without abnormal findings
CPT/HCPCS: 88142; 87624